=== PATIENT | female | born 1965 | race Caucasian/White ===

== ENCOUNTER → 2018-09-12 11:41 | Outpatient (CLI) | payer OTHER, MEDICAID, SELFPAY ==
--- NOTE | 2018-09-12 | DI.MRI.S_ITS ---
PROCEDURE: MR KNEE LT WO CON INDICATIONS: LEFT KNEE PAIN TECHNIQUE: Lan-Nephew Visionaire protocol was performed. Noncontrast sagittal PD fast spin echo and T2 fast spin echo with fat saturation, sagittal 3-D FLASH with fat saturation; coronal T1 spin echo and PD fast spin echo with fat saturation, and axial PD fast spin echo with fat saturation through the knee. COMPARISON: [facility], CR, XR KNEE ARTHRITIC SERIES BI, 08/22/2018, 11:11. , CR, XR KNEE 3 VIEWS LEFT, 06/12/2018, 11:23. FINDINGS: Image quality: Degraded by motion artifact Menisci: Circumferential macerated complex tear of the lateral and medial menisci. There is complete extrusion of both the medial and lateral menisci residual fragments. Cruciate ligaments: The anterior and posterior cruciate ligaments appear intact. Medial structures: The medial collateral ligament appears intact, although medially bowed presumably from medial compartment degeneration and meniscal tear. The posterior oblique ligament, semimembranosus tendon insertions, oblique popliteal ligament, and meniscocapsular junction appear intact. Visualized portions of the pes anserinus tendons appear normal. No abnormal bursal fluid. Lateral structures: Age-indeterminate high-grade sprain/partial rupture of the lateral collateral ligament The long and short heads of the biceps femoris tendon appear intact. The popliteus tendon is not well-seen presumably from rupture or severe tendinopathy Iliotibial band appears normal. Anterior structures: The quadriceps and patellar tendons appear intact. Patellar alignment is normal. No femoral trochlear dysplasia or ventral trochlear prominence. No edema in the infrapatellar fat pad. Bones and cartilage: No focal marrow contusion or discrete low signal fracture line. Within the medial compartment, full thickness denudation of the femoral and tibial articular cartilage. Within the lateral compartment, there is also full thickness denudation of femoral and tibial articular cartilage. Within the patellofemoral compartment, suboptimal evaluation due to motion artifact on the axial pulse sequences however there is severe diffuse patellar and femoral trochlear articular cartilage loss, probably full thickness. Joint space: Large joint effusion. There is reactive synovitis. No definite intra-articular loose bodies seen. Poorly visualized Miranda's cyst is seen measuring approximately 2-3 cm in the cephalocaudad dimension, partially obscured by motion artifact IMPRESSION: Complex macerated circumferential tear of both the medial and lateral menisci. Advanced tricompartmental degeneration with diffuse full thickness denudation of the articular cartilage Large joint effusion. Diffuse reactive synovitis Poorly visualized Miranda's cyst, partially obscured by motion artifact. Probably chronic rupture versus severe sprain of the distal popliteus and lateral collateral ligament. Motion degraded study. Dictated by: Jonathan Schrader M.D. on 09/12/2018 at 14:06 Approved by: Jonathan Schrader M.D. on 09/12/2018 at 14:15
== END ==
PROVIDERS: Visit Provider Orthopaedic Surgery
DX: S83.232A Complex tear of medial meniscus, current injury, left knee, initial encounter (principal); S83.272A Complex tear of lateral meniscus, current injury, left knee, initial encounter; M25.562 Pain in left knee; M17.12 Unilateral primary osteoarthritis, left knee; M71.22 Synovial cyst of popliteal space [Baker], left knee; M25.462 Effusion, left knee; M65.9 Synovitis and tenosynovitis, unspecified
CPT/HCPCS: 73721

== ENCOUNTER 2019-03-12 06:12 | Inpatient (IN) | payer OTHER, MEDICAID, SELFPAY ==
--- NOTE | 2018-12-23 09:34 | SUR.PREOP ---
labs requested by anesthesia review are not in system or chart. called Hilda at [facility]; states that patient had not returned phone call and also had not done UA and A1C which was ordered pre-op. She asked if it could be done here and will fax the orders.
[2019-02-26 12:43] VITALS: BMI 27.8
[2019-03-12] VITALS (19 sets, daily range): BP systolic 97–134; BP diastolic 62–88; PULSE 85–108; RESP 12–22; TEMP 35.8–37; O2SAT 91–97; BMI 28.5
--- NOTE | 2019-03-12 06:56 | PM.PREOP ---
Pre-operative Note Interval Note History & Physical reviewed/Exam performed by Physician: Yes Changes to H&P: No H&P completed within 30 days and has changed as indicated here:: c spine xray shows no significant instability, continued rheumatoid complaints, has stopped smoking
[2019-03-12] MEDS: PREGABALIN 75 MG CAPSULE PO (07:10)
[2019-03-12] MEDS: ACETAMINOPHEN 325 MG TABLET 975 MG PO ×2 (07:10→17:17)
[2019-03-12] MEDS: CELECOXIB 200 MG CAPSULE PO (07:10)
[2019-03-12] MEDS: LACTATED RINGERS 1,000 ML 42 ML IV ×2 (07:10→10:15)
[2019-03-12] MEDS: VANCOMYCIN 1,000 MG/200 ML PIGGYBACK 200 MG IV (07:11)
--- NOTE | 2019-03-12 07:25 | SUR.PREOP ---
PER Dr. Márquez, verbal order received no need to check INR or collect UA for surgical procedure.
[2019-03-12] MEDS: MIDAZOLAM 2 MG/2 ML VIAL IV (07:44)
--- NOTE | 2019-03-12 07:47 | PM.OP.1 ---
Operative Date/Time/Diagnoses Date of procedure: 03/12/19 Time of procedure: 07:58 Pre-op diagnosis: left knee severe rheumatoid arthritis Post-op diagnosis: same Procedure & Clinicians Procedure: right total knee arthroplasty Same procedure as scheduled: Yes Indications: The patient has had progressively worsening right knee pain with radiographic changes consistent with arthritis. Non-operative management has failed and the patient has requested total knee replacement. The risks, benefits and alternatives to surgery were discussed with the patient prior to proceeding. Risks discussed included, but were not limited to, failure to relieve pain, stiffness, infection, nerve damage, deep venous thrombosis, pulmonary embolism, stroke, coma, heart attack, permanent paralysis and , as well as the potential need for eventual revision of the prosthetic.The patient has a severe flexion contracture of 20 degrees and further flexion to 70 degrees. Surgeon: Juany Lan Mail Delivery Supervisor: Zane Oviedo Anesthesia Type: General and Peripheral nerve block Operative Notes Findings: severe left knee rheumatoid arthritis Closure Type: primary Specimen(s): none sent Prosthetic devices, grafts, tissues, transplants, or devices: Lan and Nephew Journey BCS 2 size 3 left femur, size 3 tibia, +9 poly, 32 by 7-1/2 mm patella Applied: drain(s) Estimated Blood Loss (mL): 250 Blood products transfused: none Tourniquet time (min): 93 Procedure in detail: The patient was seen in the pre-operative area, where the patient identified the left knee as the operative site and this was marked with my initials. The patient received pre-operative antibiotics, and was taken to the operating room and placed on the operative table in the supine position. After satisfactory anesthesia, a photovoltaic installation technician out was performed. The left leg was encircled with a tourniquet about the proximal thigh, and the leg was prepared from the toes to the tourniquet with ChloroPrep in the usual fashion and draped through sterile drapes. The leg was elevated and exsanguinated with Eschmark bandage and the tourniquet inflated to [250] mmHg pressure. The knee was approached through an approximately 18 cm incision centered over the patella and carried into the knee through a medial parapatellar arthrotomy. The patient had severe synovitis. Synovectomy was performed removing grossly hypertrophied rheumatoid synovitis. There was fairly severe destruction of the bone both on the femur and the tibia with pannus overlying and eroding the articular cartilage. A portion of the medial and lateral meniscus was resected. Soft tissue was carefully mobilized around the patella the patella was measured with a caliper. Bone was resected from the patella and the patellar height was reconstituted with up an appropriate sized patellar component. A cover was then placed on the patella. A small amount of additional medial and lateral meniscus was resected. The visionare guide fit well to the distal femur. It looked like an appropriate distal femoral cut and the cut was made without difficulty. The rotation was assessed and the appropriate size femoral guide was placed on the distal femur and finishing cuts were made. There is no evidence of notching. The anterior, posterior and chamfer cuts were then made. The posterior osteophytes and soft tissues were then removed. The posterior capsule was injected with part of a mixture of 60 ml 0.25% Marcaine mixed with 20 ml Exparel for post operative pain control. The remainder of this mixture was injected into the capsule and subcutaneous tissues during cement curing. The tibia was prepared and the visionaire guide fit well to the distal tibia. The rotation was assessed. The patient was placed in extension residual medial and lateral meniscus as well as any residual bone was carefully resected. [No] additional tibia was resected. Hemostasis was achieved especially posteriorly. Additional local was injected into the posterior capsule. The extension gap was assessed and additional releases for gap balancing were performed as necessary. It was checked with the gap agriscience teacher. The femoral component was trial was placed and the notch was finished. Trial tibial and femoral components were then placed and the knee placed through a range of motion. Range of motion was [0-130], with good stability throughout the range. She had severe restricted range of motion preoperatively with preoperative range of motion from a 20-80 degrees. Even with general anesthesia he was little difficult to get her into full extension prior to the bone cuts. At the completion of the bone cuts and trialing she could be brought to full extension. The trials were then removed, and the tibia was finished. The bone was prepared with pulsatile lavage, and dried with a sponge. Cement was applied and the final prosthetics placed. Excess cement was removed during and after cement curing. A brief Betadine soak was performed. After confirming there was no extruded cement posteriorly, the final tibial insert was placed. The knee was copiously irrigated and the tourniquet deflated. Hemostasis was obtained with the Bovie. A drain was placed and brought out superolaterally. The capsule was closed with interrupted Vicryl suture. The subcutaneous layer was closed with barbed sutures, and the skin with a running 3-0 V-Lock suture and Surgical glue. An Aquacel Ag dressing was applied and the patient was taken to recovery having tolerated the procedure well. Complications: none Post-operative Condition: stable Disposition: Acute Care Plan for aftercare: The patient will be maintained on a standard total knee replacement protocol with weight bearing as tolerated. The patient will receive aspirin and sequential compression devices for DVT prophylaxis. The patient will be discharged home when safe for the home environment. Significant preoperative flexion contracture think we need to work specifically on regaining extension of were going to give her a knee immobilizer to sleep in and I will have her therapist work on extension and proning.
--- NOTE | 2019-03-12 07:48 | SUR.PREOP ---
Pt taken into the OR at this time. Pt alert and talking to RN and significant other at bedside, vss.
[2019-03-12] MEDS: CEFAZOLIN 2 GM/100 ML FROZ.PIGGY IV ×2 (08:05→17:16)
[2019-03-12] MEDS: BUPIVACAINE 0.25% W/ EPI 30 ML VIAL 60 ML INJ (08:37)
[2019-03-12] MEDS: BUPIVACAINE LIPOSOME 266 MG/20 ML VIAL INJ (08:37)
[2019-03-12] MEDS: TRANEXAMIC ACID 1,000 MG VIAL 1000 MG IV ×2 (08:38→08:59)
--- NOTE | 2019-03-12 08:41 | SUR.OPER ---
Supine on padded OR bed. Pillow under head, arms secured on padded armboards <90 degree abduction. Safety belt across torso. Non-operative leg secured with tape over blanket over lower leg. Operative leg secured in DeMayo/Hunter positioner. Foam padded brace at thigh of operative leg.
--- NOTE | 2019-03-12 10:49 | DI.RAD.S_ITS ---
PROCEDURE: XR KNEE LT 1TO2V INDICATIONS: post-op knee TECHNIQUE: 2 view(s) of the knee acquired. COMPARISON: [facility], MR, MR KNEE LT WO CON, 09/12/2018, 11:59. [facility], CR, XR BONE LENGTH SCANOGRAM, 02/27/2019, 11:45. FINDINGS: Bones: Patient is status post knee joint arthroplasty. Hardware components are in expected positions. Visualized bony structures are intact. Soft tissues: Overlying postoperative changes are noted. A postoperative drain has been placed. IMPRESSION: Normal postoperative examination. Dictated by: Chuck Ortega M.D. on 03/12/2019 at 11:12 Approved by: Chuck Ortega M.D. on 03/12/2019 at 11:12
[2019-03-12] MEDS: HYDROMORPHONE 2 MG INJ 0.5 MG IV (10:51)
--- NOTE | 2019-03-12 11:27 | SUR.PHASEI ---
Received patient in PACU. Patient sleepy, but aroused to voice. Patient required IV pain medication for c/o 6/10 pain. Patient states that her baseline is 5/10 and her pain was becoming uncomfortable. Patient placed on face mask after pain medication for sats dropping to 84% on 3L NC. Will continue to monitor.
[2019-03-12] MEDS: LACTATED RINGERS 1,000 ML 125 ML IV (12:48)
--- NOTE | 2019-03-12 12:48 | P.PCN_ITS ---
Procedures Date/Time Date of procedure: 03/12/19 Time of procedure: 07:49 Nerve Block Time out performed: Yes Local anesthetic used: lidocaine 1% (w/ epi 5mL + 15mL 0.5 ropivacaine) Location of anesthetic used: adductor canal Amount of anesthesia used (mL): 20 Nerve blocks: femoral (adductor canal) Procedure successful: Yes Patient tolerated procedure: well Complications: none Additional comments: Adductor canal block for post operative pain management. R/B discussed. Site marked. Consent verified/signed. Standard ASA monitors. General anesthesia due to severe anxiety. Chloroprep. Sterile technique. Femoral A/V/N identified medial mid thigh with US. Lidocaine skin wheal. 100mm x 21g Pajunk needle advanced with in-plane US guidance. Negative aspiration. LA injected medial and lateral to femoral artery. Negative aspiration thr oughout. No pain, no paresthesia with injection. VSS. Tolerated well. To OR.
--- NOTE | 2019-03-12 14:11 | PC.NURSE ---
Addendum entered by Gretchen Michael R.N. 03/12/19 15:46: RESP - pt seated in chair after phys therapy, open mouth breathing, 02 sat decr to 82-85%, replaced nc at 2l and sat quickly improved to 92%. Original Note: POST OP ARRIVAL - alert, talkative, appears impulsive, moving quickly in bed, on arrival asking for food I'm hungrydiscussed starting out with clears, given juice and crackers, later ice cream and evan bowl soup, states l knee pain 2 on scale 0/10, able wiggle toes, scd, per pacu instruction, hemovac unclamped at 1220 and immed flow of serosang in tubing, verito drain cdi and green ok flashing, p 84, was on 3l 94%, occassional congested cough, states needed to void, req PT and pt up w/fww, to bsc and voided, ret to bed w/alarm set.
--- NOTE | 2019-03-12 14:59 | PT.IIE ---
Current Diagnoses Unilateral primary osteoarthritis, right knee (03/12/19) Surgery Performed Operation Date: 03/12/19 07:45 Actual Procedures p Total Knee Arthroplasty(Left) - Juany Lan MD Surgical History (Last Updated 12/11/18 @ 09:25 by Judith Reynolds RN) History of arthroplasty of right knee (Acute ~2008) History of bilateral tubal ligation (Acute ~1990) History of section (Acute ~1990) History of colonoscopy (Acute) History of ear surgery (Acute) History of esophagogastroduodenoscopy (EGD) (Acute 02/08/17) History of nasal surgery (Acute) History of repair of hiatal hernia (Acute) Hx of appendectomy (Acute ~1981) Hx of arthroscopy of right knee (Acute) Hx of tonsillectomy (Acute ~1971) Medical History (Last Updated 02/26/19 @ 13:36 by Judith Reynolds RN) ADHD (Acute) Asthma (Acute) Bronchitis (Acute) Chronic hepatitis B (Acute) Chronic pain disorder (Acute) Current every day smoker (Acute) Depression (Acute) Edema (Acute) Elevated glucose (Acute) Fibromyalgia (Acute) H/O: hysterectomy (Acute ~2006) Heart murmur (Acute) Hepatitis C (Acute ~2015) Joint pain (Acute) Left ankle joint deformity (Acute) Myopia (Acute) Non compliance with medical treatment (Acute) Osteoarthritis (Acute) Pleurisy (Acute) Pneumonia (Acute) Psoriasis (Acute) Rheumatoid arthritis (Acute ~2010) Solar retinopathy (Acute) Transaminitis (Acute) Vision impairment (Acute) Physical Therapy Inpatient Evaluation/Re-Eval M1 PT/OT-IP Prior Functional Status Start: 03/12/19 13:27 Freq: NEEDED Status: Active Protocol: Document 03/12/19 14:25 AW (Rec: 03/12/19 14:59 AW [email or web address]) Medical Review Prior Functional Status Medical History Reviewed Yes Diet/Fluid Consistency Regular Communication Able to make needs known Mobility and Gait Pt has been mod independent with functional mobility using axillary crutches for the past 10 months due to worsening pain. She also used a manual wheelchair occasionally for both home and community mobility, though notes she could walk parking lot distances with crutches and was then able to support herself using a cart for grocery shopping Activities of Daily Living and IADL's Pt reports independence with all I/ADL's Social History Household Members significant other Living Arrangements RV Number of Floors (Floors) One Floor Number of Stairs To Enter/Railing? 2 short steps to enter with left rail ascending Home Environment Standard Height Toilet,Tub/ Shower Home Equipment Front Wheel Walker,Four Wheel Walker,Straight Cane,Crutches, Manual Wheelchair,Bedside Commode,Raised Toilet Seat Without Armrests,Hand Held Shower Employment Status Unemployed Additional Social History Comment Pt lives in with boyfriend, who will be available evenings and nights to assist. Pt has a friend/neighbor and a niece who have volunteered to help her during the day for the next week. M2 PT-IP Current Condition Start: 03/12/19 13:27 Freq: NEEDED Status: Active Protocol: Document 03/12/19 14:25 AW (Rec: 03/12/19 14:59 AW [email or web address]) Physical Therapy Current Condition Current Condition Evaluation Date 03/12/19 Treatment Diagnosis s/p L TKA Onset Date 03/12/19 Weight Bearing Status Weight Bearing Status Weight Bear as Tolerated M3 PT-IP Subjective Start: 03/12/19 13:27 Freq: NEEDED Status: Active Protocol: Document 03/12/19 14:25 AW (Rec: 03/12/19 14:59 AW [email or web address]) Subjective Physical Therapy Visit Type Type Initial Evaluation Visit Start Time 13:40 Visit Stop Time 14:20 Total Visit Minutes 40 Number of ELECTRICAL ENGINEERING DRAFTING OFFICER Visits 0 Physical Therapy Visit Comments Patient Comments Pt is adamant that she will be leaving today Patient Goals To leave as soon as possible Therapy Pain Assessment Pain When Pain Assessed During Mobility Pain Present Pain Present Denied Pain M4 PT-IP Mobility and Gait Start: 03/12/19 13:27 Freq: NEEDED Status: Active Protocol: Document 03/12/19 14:25 AW (Rec: 03/12/19 14:59 AW [email or web address]) PT-Bed Mobility Assessment Rolling Type of Rolling Roll to Left Level of Assist Standby Assistance Supine to Sit Supine to Sit Standby Assistance Sit to Supine Sit to Supine Standby Assistance Scooting Scooting to Edge of Bed Standby Assistance PT-Transfer Assessment Sit to and From Stand Sit to and from Stand Standby Assistance,Contact Guard Assistance Equipment Transfer Assistive Device Gait Belt,Front Wheeled Walker ,Axillary Crutches Orthotic/Prosthetic Devices or Brace: No Transfers Transfer Destination Bed,Chair,Bedside Commode Transfer Technique stand pivot with FWW to C; pt ambulated with crutches to bed and chair Transfer Ability Level of Assist Standby Assistance,Contact Guard Assistance Comments Mobility Comments Pt required SBA to CGA for transfers using axillary crutches. CGA required when patient lost her balance posteriorly while attempting to sit in bedside chair. Pt was observed to be impulsive, but had good safety awareness with crutches. No need for verbal cues for safe use of AD . She reports she has been using them for the past 10 months. Gait Assessment Gait Gait Assistance Required: Standby Assistance Distance (Feet) 100 Able to Maintain Weight Bearing Status Yes During Gait Assistive Devices Assistive Device Gait Belt,Axillary Crutches Orthotic/Prosthetic Devices or Brace: No Gait Deviations General Gait Pattern Antalgic,Decreased Stride Length,Decreased Feet Clearance,Flexed Trunk,Step-to Gait Factors Limiting Gait Function Factors Limiting Gait Function Decreased Activity Tolerance, Decreased Strength,Limited Range of Motion,Pain Comments Gait Comments Pt ambulated 100 ft using axillary crutches SBA. She refused FWW due to rheumatoid arthritis making weightbearing through her arms too painful. She notes that she typically uses axillary crutches set high enough to rest in her axillae to avoid too much weightbearing through arms. Pt was educated about risks of using crutches in this manner, including potential neural injury, but patient refused any other device. Stair Climbing Assessment Evaluation Level of Assist On Stairs Contact Guard Assistance Devices Stair Climbing Assistive Devices Axillary Crutches,Left Railing Technique/Endurance Stair Climbing Direction Ascend and Descend Stair Climbing Technique Step to Step Number of Steps Climbed 3 Query Text: Stair Climbing Set # Repetitions (reps) 1 Comments Stair Climbing Comments Pt demonstrated her stair technique with crutches which involved using one crutch under each arm along with left -side railing. Attempted to educate pt in switching both crutches to the uninvolved side, but she refused, stating she has been using her crutches this way for ten months. She managed [place] CGA. PT-Balance Assessment Sitting Balance and Reactions Static Sitting Balance Ability Good Dynamic Sitting Balance Ability Good Standing Balance and Reactions Static Standing Balance Ability Good Dynamic Standing Balance Ability Fair Device Used axillary crutches M5 PT-IP Objective Assessments Start: 03/12/19 13:27 Freq: NEEDED Status: Active Protocol: Document 03/12/19 14:25 AW (Rec: 03/12/19 14:59 AW [email or web address]) Orientation Orientation/Cognition Level of Alertness Alert Orientation Name,Day of Week,Place, Situation Language Function Ability No Deficits Noted Safety Awareness Decreased Safety Awareness Memory Description No Deficits Noted Comments Pt was difficult to rouse at first. She attributed her sleepiness to lack of sleep the previous night Gross Range of Motion Upper Extremity ROM Assessment Within Functional Limits Lower Extremity ROM Assessment Left Impaired Impairments Left leg lacking full extension Strength Upper Extremity Strength Assessment Within Functional Limits Lower Extremity Strength Assessment Left Impaired Coordination Assessment Gross Coordination Gross Coordination WNL Sensation Assessment Sensation Gross Sensation WNL Muscle Tone Muscle Tone WNL Yes M6 PT-IP Treatment Start: 03/12/19 13:27 Freq: NEEDED Status: Active Protocol: Document 03/12/19 14:25 AW (Rec: 03/12/19 14:59 AW [email or web address]) Physical Therapy Treatment Exercises Exercises Ankle Pumps,Gluteal Sets, Passive Knee Extension Hang Education Education Provided Precautions,Weight Bearing Status,Post-Op Packet,Safety M7 PT-IP Assessment and Plan Start: 03/12/19 13:27 Freq: NEEDED Status: Active Protocol: Document 03/12/19 14:25 AW (Rec: 03/12/19 14:59 AW [email or web address]) PT Summary Assessment and Plan Potential Rehabilitation Potential Good Status of Condition at Evaluation Evolving Summary Impairments Pain,ROM,Strength,Balance, Transfers,Gait,Activity Tolerance Assessment Summary Pt is a 53 yo woman with history of RA, hepatitis B, and R TKA who was seen on POD0 following L TKA. PLOF: Pt was mod indpendent with use of axillary crutches (set high in axillae to avoid weightbearing through arms due to RA). She also occasionally mobilized using a manual wheelchair. She reports independence with all ADL's. CLOF: Pt found to be impulsive and adamant that she is leaving today. She required SBA to CGA for transfers, SBA for gait with axillary crutches. She lacks full extension in LLE and has difficulty with heelstrike. PT reviewed plan of care, post- op exercises, weightbearing status, and safe use of axillary crutches (though pt refused corrected height of AD and refused correction to stair climbing technique). Pt would benefit from further gait and stair training, especially with potential for increased pain later today and tomorrow, but she insists she knows what it will feel like due to her previous TKA and believes she will be able to manage. She does have her boyfriend, neighbor, and a niece available to assist her at home for the next week. PT recommendation is for discharge to home with increased assistance when cleared by orthopedics as well as outpatient PT Goals Bed Mobility Goal Independent Transfer Goal Independent Gait Goal Standby Assistance Gait Distance 150 Other Goals up/down 2 steps with left rail ascending SBA Days to Meet Goals 2 Frequency of Treatment Frequency Of Treatment Twice a Day Treatment Plan Physical Therapy Treatment Plan Bed Mobility Training,Transfer Training,Gait Training, Therapeutic Exercise,Balance Retraining,Post Op Education, Discharge Planning,Hot or Cold Pack,Neuromuscular Re-ed, Coordination Retraining,Manual Therapy Other Recommendations and Next Treatment progress gait distance; Focus continue gait training for improved heelstrike/LLE extension; continue stair training Recommendations To Nursing Amount of Assist Needed Standby Assistance,1 Person Assist Discharge Recommendations PT Discharge Recommendations Home with Assistance, Outpatient PT
[2019-03-12] MEDS: GABAPENTIN 400 MG CAPSULE 800 MG PO (17:16)
--- NOTE | 2019-03-12 18:25 | PM.DS.1 ---
History of Present Illness History of Present Illness Date Patient Seen: 03/12/19 Time Patient Seen: 18:25 Chief complaint: [id number] Narrative: The patient has had progressively worsening right knee pain with radiographic changes consistent with arthritis. Non-operative management has failed and the patient has requested total knee replacement. The risks, benefits and alternatives to surgery were discussed with the patient prior to proceeding. Risks discussed included, but were not limited to, failure to relieve pain, stiffness, infection, nerve damage, deep venous thrombosis, pulmonary embolism, stroke, coma, heart attack, permanent paralysis and , as well as the potential need for eventual revision of the prosthetic.The patient has a severe flexion contracture of 20 degrees and further flexion to 70 degrees. Discharge Providers Provider Date of admission: 03/12/19 06:12 Discharge Date: 03/12/19 Primary care physician: RAMOS Sánchez Consults: 12/11/18 09:46 Consult to Anesthesiology Routine Comment: Consulting Provider: Anesthesiologist Reason for consultation: Surgeon requested re: Liver Consult to Respiratory Therapy Evaluate & Treat Comment: Physician Instructions: Evaluate and treat 12/23/18 06:00 Consult to Anesthesiology Routine Comment: Consulting Provider: Anesthesiologist Reason for consultation: Regional block for post operative pain control 02/26/19 13:37 Consult to Respiratory Therapy Evaluate & Treat Comment: Physician Instructions: Evaluate and treat Consult to Concrete Saw Operator Routine Comment: High stressors w/living situation, lives in an RV 03/12/19 10:53 Consult to Discharge Planning Routine Comment: Consult to Physical Therapy Evaluate & Treat Comment: Physician Instructions: postop TKA protocol Consult to Respiratory Therapy Evaluate & Treat Comment: Physician Instructions: Evaluate and treat 03/12/19 12:15 Consult to Discharge Planning Routine Comment: Consult to Physical Therapy Evaluate & Treat Comment: work on extension and proning Physician Instructions: postop TKA protocol Consult to Respiratory Therapy Evaluate & Treat Comment: Physician Instructions: Evaluate and treat Discharge provider: Jose Beasley PA-C Summary Hospital Course Discharge Diagnosis: s/p left total knee arthroplasty rheumatoid arthritis psoriasis osteoporosis hepatitis/liver disease hepatitis C heart murmur fibromyalgia chronic hepatitis B asthma arthritis Hospital Course: Patient admitted to hospital for a right total knee arthroplasty with Dr. Lan. Hospital course was unremarkable. Post op day #1 patient was ready for discharge home. Patient has prescriptions for pain management at home. Prescription for prednisone 10 mg PO daily #30 tab given for rheumatoid arthritis. Patient was eating and voiding without difficulty or assistance prior to discharge. Patient was mobilizing with physical therapy prior to discharge. Patient has outpatient physical therapy scheduled. FABRICIO dressing was CDI. ASA 81 mg bid for DVT prophylaxis. Exam Vital Signs (past 8 hours): Oxygen Delivery Method Nasal Cannula Oxygen Flow Rate 2 Narrative Exam Narrative: 53 year old female sitting comfortably in chair, in no apparent distress. A&Ox3. FABRICIO dressing CDI on anterior right knee. Right knee is warm and dry, no rashes or lesions noted. Sensory function grossly intact to light touch in lower extremities bilaterally. Patient is able to actively plantar flex/luis flex bilaterally. Dorsalis Pedis 2+ bilaterally. Capillary refill normal in LE bilaterally. Discharge Plan Discharge Plan Patient Disposition: Home Discharge Med Rec/Prescriptions Prescriptions: New prednisone 10 mg tablet 10 mg PO DAILY Qty: 30 RF: 0 Continued sulfasalazine 500 mg Tablet 1,500 mg PO BID RF: 0 omeprazole 40 mg Capsule,Delayed Release(Dr/Ec) 40 mg PO DAILY PRN (Reason: Heartburn) RF: 0 gabapentin 800 mg Tablet 800 mg PO TID RF: 0 tenofovir disoproxil fumarate 300 mg Tablet 300 mg PO BEDTIME RF: 0 Follow up/Referrals: Omari Woodall FNP-C [Primary Care Provider] - Juany Lna MD [Physician] - Provider Discharge Instructions Diet: Regular Activity: Ambulate as tolerated. Follow [facility] protocol. Cold/Heat Therapy: Continue cold therapy Skin/Wound/Dressing Care Report to your healthcare provider any signs of infection, such as:: chills, fever, increased pain and unusual drainage Dressing: Keep FABRICIO dressing dry. If saturated or the unit stops working please contact the office. Visit Report/Discharge Packet Instructions: DI for Heart Failure, DI for Knee Replacement Stand Alone Forms: Surgery Discharge Visit Report Forms: Congestive Heart Failure, Stroke Signs & Symptoms Discharge Data Primary Care Provider: Omari Woodall Discharges patient from system. Discharge Date/Time: 03/12/19 19:52 Quality VTE Deep Vein Thrombosis/Pulmonary Embolism Present on Admission: No
== END 2019-03-12 19:52 | disposition home or self-care (01) | DRG 470 ==
PROVIDERS: Admitting Provider Orthopaedic Surgery; PCP Nurse Practitioner; Visit Provider Orthopaedic Surgery
PROC: 0SRD0JZ Replacement of Left Knee Joint with Synthetic Substitute, Open Approach (ICD-10-PCS; CPT 27447; principal; 2019-03-12 07:45)
DX: M06.862 Other specified rheumatoid arthritis, left knee (principal); B18.1 Chronic viral hepatitis B without delta-agent; M25.562 Pain in left knee; Z96.651 Presence of right artificial knee joint; M06.9 Rheumatoid arthritis, unspecified; M79.7 Fibromyalgia; F17.210 Nicotine dependence, cigarettes, uncomplicated; J45.909 Unspecified asthma, uncomplicated
CPT/HCPCS: 73560; 94762; 97116; 97161; C1776; C9290; J0690; J1100; J1170; J1720; J2250; J2405; J2704; J3010